=== PATIENT | male | born 1960 | race Caucasian/White ===

== ENCOUNTER → 2017-08-29 | Outpatient (CLI) | payer BC ==
[2017-08-29 17:56] LABS: ALT 31 U/L (21-72); AST 37 U/L (17-59)
== END | disposition home or self-care (01) ==
LOC: LABWHC1 17:02
PROVIDERS: ATTEND Podiatrist Foot & Ankle Surgery
DX: K74.60 Unspecified cirrhosis of liver (principal)
CPT/HCPCS: 36415; 84450; 84460

== ENCOUNTER → 2017-10-01 | Outpatient (CLI) | payer BC ==
[2017-10-01 18:03] LABS: ALT 33 U/L (21-72); AST 33 U/L (17-59)
== END | disposition home or self-care (01) ==
LOC: LABWHC1 16:48
PROVIDERS: ATTEND Podiatrist Foot & Ankle Surgery
DX: K74.60 Unspecified cirrhosis of liver (principal)
CPT/HCPCS: 36415; 84450; 84460

== ENCOUNTER → 2020-05-01 | Outpatient (CLI) | payer BC, OTHER ==
--- NOTE | 2020-05-01 23:40 | MR ---
EXAMINATION TYPE: MR shoulder LT wo con DATE OF EXAM: 05/01/2020 COMPARISON: Radiographs 04/07/2020. HISTORY: Left shoulder pain TECHNIQUE: Multiplanar, multisequence imaging of the left shoulder is performed without contrast. FINDINGS: Rotator Cuff: 4.8 x 4.6 cm full-thickness tear of the supraspinatus tendon extending to the infraspin atus tendon anterior to mid fibers. There is tendon retraction to the level of the glenohumeral joint . There is mild tendinosis and fraying of the subscapularis and teres minor tendons. Moderate to clotilde ed atrophy of the supraspinatus muscle. Mild muscular edema in the supraspinatus and infraspinatus mu scles. Acromioclavicular Joint: Mild to moderate osteoarthritis. Glenohumeral Joint: Moderate osteoarthritis. Labrum: Degenerative tearing of the glenoid labrum. Biceps Tendon: The long head of biceps is in normal location within bicipital groove. Bone marrow signal: No focal abnormal marrow signal is appreciated. Other: Small to moderate amount of fluid is seen in the subacromial-subdeltoid bursa communicating wi th the glenohumeral joint. IMPRESSION: Large, retracted full-thickness tear of the supraspinatus tendon extending to the infraspinatus tendo n. Associated moderate to marked atrophy of the supraspinatus muscle. Subacromial-subdeltoid bursitis with joint effusion.
== END | disposition home or self-care (01) ==
LOC: RADMRIMAIN 18:27
PROVIDERS: ATTEND Orthopaedic Surgery
DX: M75.122 Complete rotator cuff tear or rupture of left shoulder, not specified as traumatic (principal); M62.512 Muscle wasting and atrophy, not elsewhere classified, left shoulder; M75.52 Bursitis of left shoulder; M25.412 Effusion, left shoulder

== ENCOUNTER → 2020-05-22 | Outpatient (CLI) | payer BC, OTHER ==
[2020-05-22 10:38] LABS: Potassium 4.6 mmol/L (3.5-5.1)
[2020-05-22 10:46] LABS: Basophils # (A) 0.1 k/uL (0-0.2); Basophils % (A) 1 %; Eosinophils # (A) 0.3 k/uL (0-0.7); Eosinophils % (A) 5 %; HCT 44.8 % (39.0-53.0); HGB 15.3 gm/dL (13.0-17.5); Lymphocytes # (A) 1.6 k/uL (1.0-4.8); Lymphocytes % (A) 28 %; MCHC 34.3 g/dL (31.0-37.0); MCV 93.3 fL (80.0-100.0); Mean Platelet Volume 6.7; Monocytes # (A) 0.4 k/uL (0-1.0); Monocytes % (A) 7 %; Neutrophils # (A) 3.2 k/uL (1.3-7.7); Neutrophils % (A) 57 %; Platelet Count 207 k/uL (150-450); RDW 12.5 % (11.5-15.5); WBC 5.7 k/uL (3.8-10.6)
== END | disposition home or self-care (01) ==
LOC: LABPAT 09:29
PROVIDERS: ATTEND Orthopaedic Surgery
DX: Z01.818 Encounter for other preprocedural examination (principal); M75.42 Impingement syndrome of left shoulder
CPT/HCPCS: 36415; 80051; 85025; 93005

== ENCOUNTER 2020-05-26 06:37 | Day surgery (SDC) | payer BC, OTHER ==
[2020-05-24 12:03] VITALS: BMI 27.1
--- NOTE | 2020-05-25 09:11 | HP ---
HISTORY AND PHYSICAL CHIEF COMPLAINT: Left shoulder pain. 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 He fell injuring the shoulder. He is having a difficult time with any overhead use since. He notes weakness in addition to pain. He is having night symptoms. His pain is severe and rates 8 to 10/10. He denies previous problems. PAST MEDICAL HISTORY: Negative. PAST SURGICAL HISTORY: Significant for hernia repair. CURRENT MEDICATIONS: None. ALLERGIES: He denies drug allergies. FAMILY HISTORY: Negative. SOCIAL HISTORY: Negative for current tobacco or alcohol use. REVIEW OF SYSTEMS: Sixteen point review of systems is reviewed and is otherwise negative except as in HPI. PHYSICAL EXAMINATION: On examination, the patient is approximately 6 feet tall, 200 pounds of mesomorphic habitus. HEENT exam is nonfocal. Neck is supple. On the left shoulder, he is tender about the anterior subacromial space. He has moderate crepitus. Active range of motion forward elevation 70 degrees, external rotation with arm at side 55 degrees, internal rotation to L2. Passively I am able to forward elevate him to 155 degrees. Motor strength is 4 minus over 5 for external rotation and 3/5 for abduction. Impingement test, Neer test and Speed test are positive. His distal neurovascular exam appears intact in the left upper extremity. MRI report left shoulder shows evidence of a large rotator cuff tear with some retraction involving the supraspinatus and infraspinatus. IMPRESSION: Acute traumatic left rotator cuff tear. RECOMMENDATIONS: I talked to the patient at length regarding his condition along with treatment options. At this point, he is quite symptomatic after this acute injury. After thorough discussion, he opts to proceed with surgery. We will plan to proceed with arthroscopic evaluation with probable subacromial decompression with rotator cuff repair. We will also assess damage of the long head of biceps and consider tenotomy if needed. We will likely perform this as an outpatient procedure. Risks and benefits were discussed at length in layman's terms. MMODL / IJN: [id number] /
[~2020-05-26 06:37] MED LIST: DEXAMETHASONE SOD PHOSPHATE 4 MG/ML 1 ML VIAL IV PRN; LACTATED RINGERS 1,000 ML IV SCH; MIDAZOLAM 2 MG/2 ML VIAL IV PRN; ONDANSETRON 4 MG/2 ML VIAL IVP PRN; SCOPOLAMINE 1.5MG/72HR PATCH TRANSDERM PRN
[2020-05-26] MEDS ORDERED: HYDROmorphone 0.5 MG/0.5 ML SYRINGE IVP PRN (07:00)
[2020-05-26] MEDS ORDERED: MIDAZOLAM 2 MG/2 ML VIAL IV ONE (08:01)
[2020-05-26] MEDS ORDERED: fentaNYL (PF) 50 MCG/ML 2 ML AMP IV ONE (08:01)
--- NOTE | 2020-05-26 08:19 | P.ANPRN ---
Procedure Note - Anesthesia - Nerve Block Performed Left Interscalene Time Out Performed: Yes (08:00) Date of Procedure: 05/26/20 Procedure Start Time: 08:00 Procedure Stop Time: :14 Location of Patient: PreOp Indication: Acute Post-Operative Pain, Requested by Surgeon (Dr Zambrano) Sedation Type: Sedate with meaningful contact maintained Preparation: Sterile Prep Position: Supine Catheter: None Needle Types: Pajunk (22g) Ultrasound used to visualize needle placement: Yes Ultrasound used to observe medication spread: Yes Injectate: 0.5% Ropivacaine (see comment for volume) (20cc) Blood Aspirated: No Pain Paresthesia on Injection Noted: No Resistance on Injection: Normal Image Stored and Saved: Yes Events: Uneventful and Well Tolerated
[2020-05-26] MEDS ORDERED: ROPIVACAINE 5 MG/ML 30 ML VIAL ONE (08:50)
[2020-05-26] MEDS ORDERED: LIDOCAINE 1% INJ 10MG/ML (20 ML MDV) ONE (08:50)
[2020-05-26] MEDS ORDERED: MIDAZOLAM 2 MG/2 ML VIAL ONE (08:50)
[2020-05-26] MEDS ORDERED: PROPOFOL 10 MG/ML 20 ML VIAL IV ONE (08:50)
[2020-05-26] MEDS ORDERED: ePHEDrine SULFATE/0.9% NACL/PF 50 MG/5 ML SYRINGE IV ONE (08:50)
[2020-05-26] MEDS ORDERED: SUCCINYLCHOLINE CHLORIDE 100 MG/5 ML SYR IV ONE (08:50)
[2020-05-26] MEDS ORDERED: LACTATED RINGERS 1,000 ML IV ONE ×2 (09:00)
[2020-05-26] MEDS ORDERED: EPINEPHrine (PF) 1 ML in SODIUM CHLORIDE 0.9% IRRIGATIO 3,000 ML IRRIGATION ONE ×8 (09:18)
--- NOTE | 2020-05-26 10:32 | P.OP ---
Date of Procedure: 05/26/20 Preoperative Diagnosis: Acute on chronic left rotator cuff tear Postoperative Diagnosis: Same in addition to high-grade partial-thickness tear intra-articular portion long head of the biceps Procedure(s) Performed: Left shoulder arthroscopic subacromial decompression/biceps tenotomy/rotator cuff repair Implants: Arthrex 4.75 mm swivel lock anchor 2, 5.5 mm swivel lock anchor 2 Anesthesia: ANAI, tamra Surgeon: Jone Zambrano Vp Delivery #1: Gene Frausto Estimated Blood Loss (ml): 10 Pathology: none sent Condition: stable Disposition: PACU Indications for Procedure: The patient's a 59-year-old male who presents after a recent fall with significant weakness and pain in his left shoulder. His MRI showed evidence of a large rotator cuff tear that was retracted. He previously had no symptoms. A discussion of the risks and benefits of operative intervention versus conservative measures was made with the patient. With the acute nature of his injury, he opted to proceed with surgery. Operative risks to include infection, neurovascular injury, development of blood clots, possible tendon rerupture, possible postoperative stiffness and need for subsequent procedures was discussed. Informed consent was obtained. Operative Findings: As below Description of Procedure: The patient was brought to the operating room, and after induction of general anesthesia was placed in a beachchair position. A preoperative interscalene block was placed for postoperative analgesia. I examined the left shoulder. There was no gross block to passive motion or gross glenohumeral instability. The left upper extremity was prepped and draped in normal fashion. The bony outlines the acromion, distal clavicle, and coracoid process were outlined with a skin marker. The glenohumeral joint was inflated with 50 mL of saline utilizing a spinal needle from posterior approach. A posterior portal was made through a 5 mm skin incision 1 cm medial and inferior to the posterior lateral border time. A blunt trocar was used to easily into the joint. Diagnostic arthroscopy was performed. An anterior portal was made just lateral to the coracoid process entering the joint above the subscapularis tendon. The subscapularis tendon appeared to be intact. Anterior labrum was intact. The inferior recess was inspected. The posterior labrum was intact. There was a high-grade partial-thickness tear of the long head of the biceps involving interarticular portion. It was elected to proceed with release at this point. This was released from the superior labrum with electrocautery and was allowed to retract to the bicipital groove. On inspection the rotator cuff, a large tear involving the supraspinatus and infraspinatus was noted. A lateral portal was made 2 centimeters inferior to the anterior lateral border of the acromion. I was able to mobilize the infraspinatus posteriorly with a traction suture. I was able to bring this back to the greater tuberosity. The supraspinatus was torn anteriorly and retracted past the glenoid. There is no substantial tissue that I was able to bring back to the tuberosity. The soft tissue on the undersurface of the acromion was debrided with a motorized shaver and electrocautery clearly defining the anterior medial and lateral borders as well as the distal clavicle. An anterior inferior acromioplasty was performed with a motorized christina starting anterolateral, then extending this posteriorly, then extending this medially. I converted to a flat acromion and this was verified in the posterior and lateral viewing portals. The greater tuberosity was lightly decorticating with a shaver down to a bleeding bony surface. An accessory superior lateral portal was made just off the lateral edge of the acromion for anchor placement. 2 anchors were then placed just off the articular surface with the appropriate starting awl. 4.75 mm anchors preloaded with #2 fiber tape were placed. Good purchase was obtained. These fiber tapes were then passed the rotator cuff with a scorpion suture passer. A lateral row was created crisscrossing these tapes. 5.5 mm swivel lock anchors x2 were placed laterally. Good purchase was obtained. Final arthroscopic view showed adequate compression at the footprint. The arthroscope was then removed. The portals were closed with simple 3-0 nylon sutures. A sterile dressing was applied in addition to an abductor brace. The patient was then awoken from general anesthesia and transferred to recovery room in good condition. Blood loss was estimated at 10 mL. No complications were incurred. Sponge and needle counts were correct in the case. Prashanth LUTZ assisted and the major components of the case to include arm positioning, anchor placement, and rotator cuff repair.
[2020-05-26 10:37] VITALS: RESP 16; TEMP 97.2
[2020-05-26 11:46] VITALS: BP 146/64; PULSE 77
== END 2020-05-26 12:54 | disposition home or self-care (01) ==
LOC: OR 06:37
PROVIDERS: ATTEND Orthopaedic Surgery
DX: S46.012A Strain of muscle(s) and tendon(s) of the rotator cuff of left shoulder, initial encounter (principal); S46.112A Strain of muscle, fascia and tendon of long head of biceps, left arm, initial encounter; W19.XXXA Unspecified fall, initial encounter; Y99.0 Civilian activity done for income or pay; Z98.890 Other specified postprocedural states
CPT/HCPCS: 64415; 76942; 29826; 29827; C1713 ×3; C1894; J2250; J1100; J0690; J2405; J0171; J2001; J3010; J2795; J0330; J2704

== ENCOUNTER → 2021-01-04 | Outpatient (CLI) | payer BC ==
[2021-01-04 11:03] LABS: Basophils # (A) 0.06 X 10*3/uL (0.00-0.10); Basophils % (A) 0.8 %; Eosinophils # (A) 0.23 X 10*3/uL (0.04-0.35); Eosinophils % (A) 3.2 %; HCT 42.7 % (39.6-50.0); HGB 13.8 g/dL (13.0-17.0); Lymphocytes % (A) 20.7 %; MCH 30.3 pg (27.0-32.0); MCHC 32.3 g/dL (32.0-37.0); MCV 93.8 fL (80.0-97.0); Mean Platelet Volume 9.8 fL (9.5-12.2); Monocytes # (A) 0.55 X 10*3/uL (0.20-1.00); Monocytes % (A) 7.6 %; Neutrophils # (A) 4.89 X 10*3/uL (1.80-7.70); Neutrophils % (A) 67.3 %; Platelet Count 228 X 10*3/uL (140-440); RBC 4.55 X 10*6/uL (4.40-5.60); RDW 13.4 % (11.5-14.5); WBC 7.26 X 10*3/uL (4.50-10.00)
[2021-01-05 02:39] LABS: African American GFR (CKD) 76.8 (60.0-200.0); Albumin 4.5 g/dL (3.80-4.90); Albumin/Globulin Ratio 1.96 (1.60-3.17); Anion Gap 12.3 mmol/L (4.00-12.00); BUN/Creat Ratio 15.83 Ratio (12.00-20.00); Calcium 9.5 mg/dL (8.7-10.3); Carbon Dioxide 24.7 mmol/L (21.6-31.8); Chol/HDL Ratio 2.75; Globulin 2.3 g/dL (1.6-3.3); Non-African American GFR(CKD) 66.3 (60.0-200.0); Potassium 4.5 mmol/L (3.5-5.5); Total Bilirubin 0.9 mg/dL (0.2-1.2); Total Protein 6.8 g/dL (6.2-8.2)
== END | disposition home or self-care (01) ==
LOC: LABWHC1 07:53
PROVIDERS: ATTEND Family Medicine
DX: Z00.00 Encounter for general adult medical examination without abnormal findings (principal); E55.9 Vitamin D deficiency, unspecified
CPT/HCPCS: 36415; 80053; 80061; 82306; 84153; 84443; 85025

== ENCOUNTER 2021-03-30 07:23 | Day surgery (SDC) | payer BC ==
[2021-03-28 10:46] VITALS: BMI 25.7
[2021-03-30 08:04] VITALS: TEMP 97.2
[2021-03-30] MEDS: LACTATED RINGERS 1,000 ML IV SCH ×2 (08:15→08:18)
[2021-03-30] MEDS ORDERED: PROPOFOL 10 MG/ML 20 ML VIAL IV ONE (08:23)
--- NOTE | 2021-03-30 08:42 | P.PCN ---
Date of Procedure: 03/30/21 Preoperative Diagnosis: Screening for colon cancer Postoperative Diagnosis: Overall, normal colon Internal hemorrhoids Procedure(s) Performed: Colonoscopy Anesthesia: MAC Surgeon: Mikayla Gage Pathology: none sent Condition: stable Disposition: same day Indications for Procedure: 60-year-old male presents for screening colonoscopy. Denies any blood in his stool. Risks, benefits and alternatives were provided he did provide consent. Operative Findings: Overall, normal-appearing colon Mild internal hemorrhoids Description of Procedure: The patient was brought into the endoscopy suite and placed in left lateral decubitus position. Adequate sedation was achieved using conscious sedation. A digital rectal exam was performed and internal hemorrhoids were palpated. An endoscope was then placed in the rectum and advanced to the cecum as identified by landmarks including the appendiceal orifice and the ileocecal valve. The prep was good. The colonoscope was slowly withdrawn, examining for any mucosal antibiotics. The cecum, ascending, transverse, descending and sigmoid colon were visualized adequately. There were no large neoplastic lesions noted throughout the colon. There were no obvious polyps noted throughout the colon. No obvious diverticulosis was noted. Retroflexion was performed in the rectum and internal hemorrhoids were visible. Excess air was removed from the colonoscope withdrawn and the procedure terminated. The patient was then transferred to the recovery unit in stable condition. Repeat colonoscopy should be performed in 8 years.
[2021-03-30 09:04] VITALS: BP 144/73; PULSE 49; RESP 16
== END 2021-03-30 09:17 | disposition home or self-care (01) ==
LOC: ORWHC2ENDO 07:23
PROVIDERS: ATTEND Surgery
DX: Z12.11 Encounter for screening for malignant neoplasm of colon (principal); K64.8 Other hemorrhoids; Z80.0 Family history of malignant neoplasm of digestive organs; Z98.890 Other specified postprocedural states
CPT/HCPCS: J2704; G0121

== ENCOUNTER → 2023-02-28 | Outpatient (CLI) | payer OTHER ==
[2023-02-28 16:04] LABS: Basophils # (A) 0.06 X 10*3/uL (0.00-0.10); Basophils % (A) 0.7 %; Eosinophils # (A) 0.18 X 10*3/uL (0.04-0.35); Eosinophils % (A) 2.2 %; HCT 40.1 % (39.6-50.0); HGB 12.9 g/dL (13.0-17.0); Lymphocytes # (A) 1.25 X 10*3/uL (0.90-5.00); Lymphocytes % (A) 15.3 %; MCH 29.5 pg (27.0-32.0); MCHC 32.2 g/dL (32.0-37.0); MCV 91.6 FL (80.0-97.0); Monocytes # (A) 0.77 X 10*3/uL (0.20-1.00); Monocytes % (A) 9.4 %; NRBC Per 100 WBC 0 X 10*3/uL (0.00-0.01); Neutrophils # (A) 5.85 X 10*3/uL (1.80-7.70); Neutrophils % (A) 71.8 %; Platelet Count 380 X 10*3/uL (140-440); RBC 4.38 X 10*6/uL (4.40-5.60); RDW 12.5 % (11.5-14.5); WBC 8.16 X 10*3/uL (4.50-10.00)
[2023-02-28 16:22] LABS: ALT 14 U/L (10-49); AST 21 U/L (14-35); Albumin 3.8 g/dL (3.8-4.9); Albumin/Globulin Ratio 1.41 Ratio (1.60-3.17); Alkaline Phosphatase 68 U/L (41-126); BUN/Creat Ratio 17.22 Ratio (12.00-20.00); Blood Urea Nitrogen 15.5 mg/dL (9.0-27.0); Calcium 9.2 mg/dL (8.7-10.3); Carbon Dioxide 26.9 mmol/L (21.6-31.8); Chloride 103 mmol/L (96-109); Chol/HDL Ratio 3.89 Ratio; Globulin 2.7 g/dL (1.6-3.3); Glucose 88 mg/dL (70-110); LDL Cholesterol,Calculated 114.6 mg/dL (0.0-131.0); Potassium 5.2 mmol/L (3.5-5.5); Prostate Specific Antigen 1.29 ng/mL (0.000-4.500); Sodium 140 mmol/L (135-145); Total Bilirubin 0.2 mg/dL (0.3-1.2); Total Protein 6.5 g/dL (6.2-8.2); VLDL Calculation 10.86 mg/dL (5.00-40.00)
== END | disposition home or self-care (01) ==
LOC: LABWHC1 07:17
PROVIDERS: ATTEND Family Medicine
DX: Z00.00 Encounter for general adult medical examination without abnormal findings (principal)
CPT/HCPCS: 36415; 80053; 80061; 82306; 84153; 84443; 85025

== ENCOUNTER → 2023-03-14 | Outpatient (CLI) | payer OTHER ==
[2023-03-14 11:56] LABS: Basophils # (A) 0.07 X 10*3/uL (0.00-0.10); Basophils % (A) 0.7 %; Eosinophils # (A) 0.23 X 10*3/uL (0.04-0.35); Eosinophils % (A) 2.4 %; HCT 39.1 % (39.6-50.0); HGB 12.4 g/dL (13.0-17.0); Lymphocytes # (A) 1.67 X 10*3/uL (0.90-5.00); Lymphocytes % (A) 17.6 %; MCH 28.7 pg (27.0-32.0); MCHC 31.7 g/dL (32.0-37.0); MCV 90.5 FL (80.0-97.0); Monocytes # (A) 0.84 X 10*3/uL (0.20-1.00); Monocytes % (A) 8.9 %; NRBC Per 100 WBC 0 X 10*3/uL (0.00-0.01); Neutrophils # (A) 6.63 X 10*3/uL (1.80-7.70); Platelet Count 361 X 10*3/uL (140-440); RBC 4.32 X 10*6/uL (4.40-5.60); WBC 9.48 X 10*3/uL (4.50-10.00)
[2023-03-14 12:15] LABS: Erythrocyte Sedimentation Rate 66 mm/Hr (0-20)
[2023-03-14 12:16] LABS: Rheumatoid Factor, Qnt <15 IU/mL (0-15); Uric Acid 3.2 mg/dL (3.7-8.7)
[2023-03-14 14:06] LABS: Anti-DNA, DS unit <1.0 IU/mL; DNA Double-Stranded Negative (Negative)
[2023-03-15 09:03] LABS: HLA B27 NEGATIVE
== END | disposition home or self-care (01) ==
LOC: LABWHC1 07:08
PROVIDERS: ATTEND Orthopaedic Surgery
DX: M25.50 Pain in unspecified joint (principal)
CPT/HCPCS: 36415; 84550; 85025; 85652; 86038; 86140; 86225; 86431; 86812

== ENCOUNTER → 2023-03-26 | Outpatient (CLI) | payer OTHER ==
[2023-03-26 16:33] LABS: Basophils % (A) 0 %; Eosinophils # (A) 0.2 k/uL (0-0.7); Eosinophils % (A) 3 %; HCT 39.8 % (39.0-53.0); Lymphocytes # (A) 1.8 k/uL (1.0-4.8); Lymphocytes % (A) 28 %; MCHC 32.7 g/dL (31.0-37.0); MCV 91.8 fL (80.0-100.0); Mean Platelet Volume 9.2; Monocytes # (A) 0.5 k/uL (0-1.0); Monocytes % (A) 7 %; Neutrophils # (A) 3.8 k/uL (1.3-7.7); Neutrophils % (A) 59 %; Platelet Count 242 k/uL (150-450); RBC 4.33 m/uL (4.30-5.90); RDW 13.3 % (11.5-15.5); WBC 6.4 k/uL (3.8-10.6)
[2023-03-26 19:44] LABS: BUN/Creat Ratio 15.44 Ratio (12.00-20.00); Blood Urea Nitrogen 13.9 mg/dL (9.0-27.0); Calcium 9.4 mg/dL (8.7-10.3); Carbon Dioxide 24.2 mmol/L (21.6-31.8); Chloride 102 mmol/L (96-109); Glucose 74 mg/dL (70-110); Potassium 4.7 mmol/L (3.5-5.5); Sodium 137 mmol/L (135-145)
== END | disposition home or self-care (01) ==
LOC: LABWHC1 15:04
PROVIDERS: ATTEND Orthopaedic Surgery Hand Surgery
DX: Z01.812 Encounter for preprocedural laboratory examination (principal); M65.4 Radial styloid tenosynovitis [de Quervain]
CPT/HCPCS: 36415; 80048; 85025

== ENCOUNTER → 2023-04-09 | Day surgery (SDC) | payer OTHER ==
[2023-04-07 11:05] VITALS: BMI 25.7
--- NOTE | 2023-04-08 10:08 | P.HPOR ---
History of Present Illness H&P Date: 04/08/23 Subjective: This is a 62 year old male that presents today for follow up evaluation regarding a several month history of progressively worsening right wrist pain as well as occasional right elbow pain. He describes the wrist pain is pain along the radial aspect of the wrist, which is worse while he plays tennis, specifically hitting a forearm shot. He also has pain along the lateral aspect of his elbow that is worse with a backhand. He has tried a course of oral steroids with good relief from his symptoms, but they were temporary. He underwent injection into his first dorsal compartment 1 month prior with no relief in symptoms. Physical Examination: RUE: AIN/PIN/Radial/Ulnar/Median motor intact. Radial/Ulnar/Median SILT. 2+/4 Radial/Ulnar pulses palpated. 5/5 APB, 5/5 FDI. Positive Finkelsteins, negative CMC grind, negative Durkan's compression. Mild TTP over ECRB tendon origin at lateral epicondyle Impression: 1.) Right DeQuervains tenosynovitis 2.) Right lateral epicondylitis Plan: Diagnosis and treatment options were discussed with the patient. His symptoms did not resolve after the injection. We discussed bracing vs first dorsal compartment release surgery. The patient wishes to proceed with a right first dorsal compartment release. Risks and benefits of surgery including bleeding, infection, damage to surrounding tissue and for further surgery were discussed and he wishes to go forward with surgical intervention. The patient was agreeable with this plan. CC: Milan Aguila M.D. -Terrance Mello DO Orthopedic Hand/Upper Extremity Surgeon Past Medical History Past Medical History: No Reported History History of Any Multi-Drug Resistant Organisms: None Reported Past Surgical History: Adenoidectomy, Hernia Repair, Orthopedic Surgery, Tonsillectomy Additional Past Surgical History / Comment(s): COLONOSCOPY. LT ROTATOR CUFF REPAIR Past Anesthesia/Blood Transfusion Reactions: No Reported Reaction Past Psychological History: No Psychological Hx Reported Smoking Status: Never smoker Past Alcohol Use History: Occasional Past Drug Use History: None Reported - Past Family History Mother Family Medical History: Cancer Medications and Allergies Home Medications Medication Instructions Recorded Confirmed Type No Known Home Medications 03/28/21 04/07/23 History Allergies Allergy/AdvReac Type Severity Reaction Status Date / Time No Known Allergies Allergy Verified 04/07/23 10:51 Physical Examination Osteopathic Statement: *. No significant issues noted on an osteopathic structural exam other than those noted in the History and Physical/Consult.
[~2023-04-09] MED LIST changes: +BUPIVACAINE (PF) 0.5% 30 ML VIAL SQ ONE; -DEXAMETHASONE SOD PHOSPHATE 4 MG/ML 1 ML VIAL IV PRN; +HYDROmorphone 0.5 MG/0.5 ML SYRINGE IVP PRN; +LIDOCAINE 1% INJ 10MG/ML (20 ML MDV) SQ ONE; -MIDAZOLAM 2 MG/2 ML VIAL IV PRN; +MIDAZOLAM 2 MG/2 ML VIAL ONE; +ONDANSETRON 4 MG/2 ML VIAL IVP ONE; -ONDANSETRON 4 MG/2 ML VIAL IVP PRN; +PROPOFOL 10 MG/ML 20 ML VIAL IV ONE; +Pre Op ABX Message 1 EACH MISC MISCELLANE ONE; -SCOPOLAMINE 1.5MG/72HR PATCH TRANSDERM PRN; +fentaNYL (PF) 50 MCG/ML 2 ML AMP ONE
[2023-04-09 07:57] VITALS: TEMP 98
--- NOTE | 2023-04-09 08:55 | P.OP ---
Date of Procedure: 04/09/23 Preoperative Diagnosis: Right DeQuervains tenosynovitis Postoperative Diagnosis: Right DeQuervains tenosynovitis Procedure(s) Performed: Right first dorsal compartment release Anesthesia: MAC Surgeon: Terrance Mello Estimated Blood Loss (ml): 0 Pathology: none sent Condition: stable Disposition: PACU Description of Procedure: This is a 62 year old male who presents today for a right first dorsal compartment release after having failed conservative treatment. Risks and benefits of surgery were discussed with the patient including bleeding, damage to surrounding tissue, infection, need for further surgery as well as risks of anesthesia including pulmonary embolism and even and the patient wished to proceed with surgical intervention. The patients was seen in the pre-operative area by myself. Consent and H&P were completed and updated. The correct extremity was marked in the pre-operative area by myself and all other questions were answered. Operative Narrative: The patient was brought to the operating room by the department of anesthe mickey. They remained on the portable stretcher and a rolling hand table was brought to the side of the operative extremity. The patient was then drifted off to sleep by the department of anesthesia. A nonsterile tourniquet was then applied to the operative extremity and the right upper extremity was then prepped and draped in normal sterile fashion. Pre-operative time out was performed indicating the correct patient, procedure and laterality. All in the room agreed. MAC anesthesia was utilized and a 50:50 mixture of 1% Lidocaine and 0.5% bupivacaine was injected into the subcutaneous tissues of the radial wrist skin, 7ccs total. Pre-operative antibiotics were given prior to skin incision. The operative extremity was the exsanguinated with an esmarch bandage and the tourniquet was inflated to 250mmHg. 15 blade scalpel was used to make a horizontal skin incision centered over the first dorsal compartment of the right wrist. Blunt dissection was taken down to the proximal edge of the first dorsal compartment while taking care to identify and protect branches of the superficial radial sensory nerve. The first dorsal compartment was released in its entirety from proximal to distal. APL and EPB tendons were identified and they were located in the same compartment with no accessory compartment visualized. Skin closure was performed with 4-0 Monocryl suture and steri strips. Sterile soft dressing was applied consisting of 4x4's cast padding and an aneta wrap. The patient was then woken by the department of anesthesia and transferred to PACU in stable condition. Terrance Mello D.O. Orthopedic Hand/Upper Extremity Surgeon
[2023-04-09 09:24] VITALS: BP 113/71; PULSE 60; RESP 16
== END | disposition home or self-care (01) ==
LOC: OR 07:15
PROVIDERS: ATTEND Orthopaedic Surgery Hand Surgery
DX: M65.4 Radial styloid tenosynovitis [de Quervain] (principal); M77.11 Lateral epicondylitis, right elbow; F10.90 Alcohol use, unspecified, uncomplicated; Z90.89 Acquired absence of other organs; Z98.890 Other specified postprocedural states; Z79.899 Other long term (current) drug therapy
CPT/HCPCS: 25000; J2250; J2405; J2001; J3010; J2704; J0665

== ENCOUNTER → 2024-03-06 | Outpatient (CLI) | payer OTHER | END | disposition home or self-care (01) | LOC: LABWHC1 07:51 | PROVIDERS: ATTEND Family Medicine | DX: Z12.5 Encounter for screening for malignant neoplasm of prostate (principal) | CPT/HCPCS: 36415; G0103 ==